=== PATIENT | female | born 1995 | race African-American/Black ===

== ENCOUNTER 2016-09-02 07:09 | Emergency (ER) | payer OTHER ==
[2016-09-02 07:13] VITALS: BP 121/73; BMI 43.5
--- NOTE | 2016-09-02 07:33 | DR.GENAD ---
HPI - PCP Primary Care Physician: Nanette Holt HPI Comment HPI Comment: WORSE TODAY. NO HISTORY TRAUMA. - Complaint/Symptoms Chief Complaint Doctors Comments: LEG CRAMPS TIMES ONE WEEK. . Chief Complaint:: pt is c/o leg cramps bilaterally in the back of her legs that started a week ago. Pt is - Nurses notes reviewed Nurses Notes Review: Yes - Source History Provided: Patient - Mode of Arrival Mode of Arrival: Ambulatory - Timing Onset of Chief Complaint: 08/26/16 Came on: Suddenly - Duration Duration: Constant Duration: Days - Severity Severity: Moderate <JULIUS AVENDAÑO - Last Filed: 09/04/16 15:05> PMH - PMH Past Medical History: Yes Past Medical History: Anxiety Past Surgical History: No - Family History History of Family Medical Conditions: Yes Family Medical History: Hypertension - Social History Does patient currently use any type of tobacco product: No Have you used tobacco products in the last 12 months: No Type of Tobacco Use: None Does any household member use tobacco: No Alcohol Use: None Do you use any recreational Drugs:: No Lives With: Alone Lives Where: Home - infectious screening In the last 2 months have you had wt loss of >10#?: NO Have you had fever, night sweats or hemotysis?: No Have you traveled outside the country in the last 6 months?: No Isolation: Standard <JULIUS AVENDAÑO - Last Filed: 09/04/16 15:05> ROS - Review of Systems Constitutional: No Symptoms Reported Eyes: No Symptoms Reported ENTM: No Symptoms Reported Respiratoy: No Symptoms Reported Cardiovascular: No Symptoms Reported Gastrointestinal/Abdominal: No Symptoms Reported Genitourinary: No Symptoms Reported Neurological: No Symptoms Reported Musculoskeletal: No Symptoms Reported, Muscle Pain (LEG CRAMPS) Integumentary: No Symptoms Reported Hematologic/Lymphatic: No Symptoms Reported Endocrine: No Symptoms Reported All Other Systems: Reviewed and Negative <JULIUS AVENDAÑO - Last Filed: 09/04/16 15:05> PE - General Limitations: No Limitations General Appearance: Alert - Head Head Exam: Normal Inspection - Eyes Eye exam: Normal Appearance - ENT ENT Exam: Normal External Ear Exam External Ear Exam: Normal External Inspection TM/Canal Exam: Bilateral Normal Nose Exam: Normal Nose Exam Mouth Exam: Normal Inspection Throat Exam: Normal Inspection - Neck Neck Exam: Normal Inspection - Chest Chest Inspection: Symmetric Chest Wall Rise - Respiratory Respiratory Exam: Normal Lung Sounds Bilat Respiratory Exam: Bilateral Clear to Auscultation - Cardiovascular Cardiovascular Exam: Regular Rate, Normal Rhythm, Normal Heart Sounds - Abdominal Exam Abdominal Exam: Normal Bowel Sounds, Distention. negative: Tenderness - Extremities Extremities Exam: Tenderness (LOWER LEGS) - Back Back Exam: Normal Inspection - Neurologic Neurological Exam: Alert, Oriented X3 - Psychiatric Psychiatric Exam: Anxious - Skin Skin Exam: Normal Color <JULIUS AVENDAÑO - Last Filed: 09/04/16 15:05> - Vital Signs Vitals: Temperature 97.9 F Pulse Rate 69 Respiratory Rate 18 Blood Pressure 121/73 O2 Sat by Pulse Oximetry 99 (JOSIE GUTIÉRREZ) (JULIUS AVENDAÑO) MDM - Differential Diagnosis Differential Diagnosis: LEG CRAMPS <JULIUS AVENDAÑO - Last Filed: 09/04/16 15:05> Course - Treatment Treatment: SEE ORDERS - Education/Counseling Education/Counseling: Patient, Education Educated On: Diagnosis <JULIUS AVENDAÑO - Last Filed: 09/04/16 15:05> ROR - Labs Reviewed Result Diagrams: 09/02/16 07:50 09/02/16 07:50 <JOSIE GUTIÉRREZ - Last Filed: 09/02/16 08:49> - Labs Reviewed Laboratory Results Reviewed?: Yes Result Diagrams: 09/02/16 07:50 09/02/16 07:50 - XRAY XRAY Interpreted by: Radiologist XRAY Findings: REPORT DISCUSS WITH PATIENT. <JULIUS AVENDAÑO - Last Filed: 09/04/16 15:05> - Labs Reviewed Laboratory: WBC 6.9 X10^3/uL (3.6-10.0) 09/02/16 07:50 RBC 4.35 X10^6/uL (3.5-5.4) 09/02/16 07:50 Hgb 11.8 g/dL (12.0-16.0) L 09/02/16 07:50 Hct 36.4 % (36.0-47.0) 09/02/16 07:50 MCV 83.7 fL (80.0-100.0) 09/02/16 07:50 MCH 27.0 pg (27.0-34.0) 09/02/16 07:50 MCHC 32.3 g/dL (33.0-35.0) L 09/02/16 07:50 RDW 14.6 % (11.6-16.5) 09/02/16 07:50 Plt Count 280 X10^3/uL (150.0-450.0) 09/02/16 07:50 MPV 7.9 fL (7.4-11.0) 09/02/16 07:50 Neut % 67.4 % (42.0-75.0) 09/02/16 07:50 Lymph % 22.4 % (21.0-51.0) 09/02/16 07:50 Hardeman % 7.8 % (0.0-13.0) 09/02/16 07:50 Eos % 1.8 % (0.9-2.9) 09/02/16 07:50 Baso % 0.6 % (0.2-1.0) 09/02/16 07:50 Neut # 4.7 x10^3/uL (2.2-4.8) 09/02/16 07:50 Lymph # 1.5 X10^3/uL (1.3-2.9) 09/02/16 07:50 Hardeman # 0.5 x10^3/uL (0.3-0.8) 09/02/16 07:50 Eos # 0.1 x10^3/uL (0.0-0.2) 09/02/16 07:50 Baso # 0.0 X10^3/uL (0.0-0.1) 09/02/16 07:50 Absolute Nucleated RBC 0.0 /100WBC 09/02/16 07:50 D-Dimer 698 ng/mL (0-400) H* 09/02/16 07:50 Sodium 141 mmol/L (136-145) 09/02/16 07:50 Corrected Sodium TNP 09/02/16 07:50 Potassium 3.7 mmol/L (3.5-5.1) 09/02/16 07:50 Chloride 108 mmol/L (98-107) H 09/02/16 07:50 Carbon Dioxide 22.5 mmol/L (21-32) 09/02/16 07:50 BUN 9 mg/dL (7-18) 09/02/16 07:50 Creatinine 0.65 mg/dL (0.55-1.02) 09/02/16 07:50 Est GFR (MDRD) Af Amer > 60 (>60) 09/02/16 07:50 Est GFR (MDRD) Non-Af > 60 (>60) 09/02/16 07:50 Glucose 85 mg/dL (65-99) 09/02/16 07:50 Calcium 8.3 mg/dL (8.5-10.1) L 09/02/16 07:50 Corrected Calcium 9.4 mg/dL (8.5-10.1) 09/02/16 07:50 Total Bilirubin 0.30 mg/dL (0.2-1.0) 09/02/16 07:50 AST 15 Units/L (15-37) 09/02/16 07:50 ALT 19 Units/L (12-78) 09/02/16 07:50 Alkaline Phosphatase 74 Units/L (46-116) 09/02/16 07:50 Total Protein 7.0 g/dL (6.4-8.2) 09/02/16 07:50 Albumin 2.6 g/dL (3.4-5.0) L 09/02/16 07:50 Globulin 4.4 g/dL (2.5-4.5) 09/02/16 07:50 Albumin/Globulin Ratio 0.6 Ratio (1.1-2.1) L 09/02/16 07:50 (JOSIE GUTIÉRREZ) <JOSIE GUTIÉRREZ - Last Filed: 09/02/16 08:49> <JULIUS AVENDAÑO - Last Filed: 09/04/16 15:05> - Diagnosis Discharge Problem: Leg cramps in - Discharge Plan Disposition: 01 HOME, SELF-CARE Condition: Stable - Follow ups/Referrals Follow ups/Referrals: Evi ORTEGA [Primary Care Provider] - 3 days - Instructions Instructions: Leg Cramps Additional Instructions: RETURN TO ED IF WORSE.
[2016-09-02 07:58] LABS: BASOPHILS % (AUTO) 0.6 % (0.2-1.0); EOSINOPHILS # (AUTO) 0.1 x10^3/uL (0.0-0.2); EOSINOPHILS % (AUTO) 1.8 % (0.9-2.9); HEMATOCRIT 36.4 % (36.0-47.0); HEMOGLOBIN 11.8 g/dL (12.0-16.0); LYMPHOCYTES # (AUTO) 1.5 X10^3/uL (1.3-2.9); LYMPHOCYTES % (AUTO) 22.4 % (21.0-51.0); MEAN CORPUSCULAR HGB CONC 32.3 g/dL (33.0-35.0); MEAN CORPUSCULAR VOLUME 83.7 fL (80.0-100.0); MEAN PLATELET VOLUME 7.9 fL (7.4-11.0); MONOCYTES # (AUTO) 0.5 x10^3/uL (0.3-0.8); MONOCYTES % (AUTO) 7.8 % (0.0-13.0); NEUTROPHILS # (AUTO) 4.7 x10^3/uL (2.2-4.8); NEUTROPHILS % (AUTO) 67.4 % (42.0-75.0); PLATELET COUNT 280 X10^3/uL (150.0-450.0); RED BLOOD COUNT 4.35 X10^6/uL (3.5-5.4); RED CELL DISTRIBUTION WIDTH 14.6 % (11.6-16.5); WHITE BLOOD COUNT 6.9 X10^3/uL (3.6-10.0)
[2016-09-02 08:11] LABS: ALANINE AMINOTRANSFERASE 19 Units/L (12-78); ALBUMIN 2.6 g/dL (3.4-5.0); ALKALINE PHOSPHATASE 74 Units/L (46-116); ASPARTATE AMINO TRANSFERASE 15 Units/L (15-37); BLOOD UREA NITROGEN 9 mg/dL (7-18); CALCIUM 8.3 mg/dL (8.5-10.1); CARBON DIOXIDE 22.5 mmol/L (21-32); CHLORIDE 108 mmol/L (98-107); COR CA(FOR HYPOALB) 9.4 mg/dL (8.5-10.1); CREATININE 0.65 mg/dL (0.55-1.02); GLUCOSE 85 mg/dL (65-99); SODIUM 141 mmol/L (136-145); eGFR BLACK RACES > 60 (>60); eGFR NON BLACK RACES > 60 (>60)
[2016-09-02 08:34] LABS: D DIMER 698 ng/mL (0-400)
--- NOTE | 2016-09-02 09:35 | VAS ---
HISTORY: Bilateral lower extremity pain with Study: Bilateral lower extremity venous Doppler Comparison: None available TECHNIQUE: Multiple valladares scale and color flow Doppler images of the deep venous system were obtaine d of the right and left lower extremity. FINDINGS: The deep venous system of the right and left lower extremities were evaluated from the level of the common femoral vein through the popliteal vein. Normal color flow and augmentation can be observed. In addition, normal compression is seen throughout the deep venous system. IMPRESSION: 1. Negative for DVT. Reported By:
== END 2016-09-02 09:58 | disposition home or self-care (01) ==
LOC: ER 07:20
DX: R25.2 Cramp and spasm (principal); Z3A.00 Weeks of gestation of pregnancy not specified
CPT/HCPCS: 36415; 80053; 85025; 85378; 93970; 99283

== ENCOUNTER → 2016-12-17 | Outpatient (CLI) | payer OTHER ==
[2016-12-17 10:38] LABS: BASOPHILS % (AUTO) 0.1 % (0.2-1.0); EOSINOPHILS # (AUTO) 0.1 x10^3/uL (0.0-0.2); EOSINOPHILS % (AUTO) 1.2 % (0.9-2.9); HEMOGLOBIN 12.1 g/dL (12.0-16.0); LYMPHOCYTES # (AUTO) 1.7 X10^3/uL (1.3-2.9); LYMPHOCYTES % (AUTO) 25.2 % (21.0-51.0); MEAN CORPUSCULAR HEMOGLOBIN 27.7 pg (27.0-34.0); MEAN CORPUSCULAR HGB CONC 33.5 g/dL (33.0-35.0); MEAN CORPUSCULAR VOLUME 82.7 fL (80.0-100.0); MEAN PLATELET VOLUME 8.4 fL (7.4-11.0); MONOCYTES # (AUTO) 0.6 x10^3/uL (0.3-0.8); MONOCYTES % (AUTO) 9.3 % (0.0-13.0); NEUTROPHILS # (AUTO) 4.4 x10^3/uL (2.2-4.8); NEUTROPHILS % (AUTO) 64.2 % (42.0-75.0); PLATELET COUNT 272 X10^3/uL (150.0-450.0); RED BLOOD COUNT 4.35 X10^6/uL (3.5-5.4); RED CELL DISTRIBUTION WIDTH 14.8 % (11.6-16.5); WHITE BLOOD COUNT 6.9 X10^3/uL (3.6-10.0)
[2016-12-17 10:38] LABS: BILIRUBIN,URINE NEGATIVE (NEGATIVE); BLOOD/HEMOGLOBIN,URINE NEGATIVE (NEGATIVE); GLUCOSE, URINE NEGATIVE (NEGATIVE); KETONES,URINE NEGATIVE (NEGATIVE); LEUKOCYTE ESTERASE ,URINE 1+ (NEGATIVE); NITRITES,URINE NEGATIVE (NEGATIVE); PROTEIN,URINE NEGATIVE (NEGATIVE); UROBILINOGEN,URINE NORMAL (NORMAL)
[2016-12-17 10:52] LABS: BLOOD UREA NITROGEN 6 mg/dL (7-18); CALCIUM 8.6 mg/dL (8.5-10.1); CARBON DIOXIDE 25.9 mmol/L (21-32); CHLORIDE 105 mmol/L (98-107); CREATININE 0.71 mg/dL (0.55-1.02); GLUCOSE 75 mg/dL (65-99); SODIUM 138 mmol/L (136-145); eGFR BLACK RACES > 60 (>60); eGFR NON BLACK RACES > 60 (>60)
[2016-12-17 11:08] LABS: AMORPHOUS SEDIMENT,UR TRACE /HPF (NEGATIVE); APPEARANCE,URINE CLEAR (CLEAR); BACTERIA,URINE NEGATIVE /HPF (NEGATIVE); COLOR,URINE YELLOW (YELLOW); RBC,URINE NONE SEEN /HPF (NEGATIVE); SQUAMOUS EPITHELIAL CELL,UR FEW /HPF (NEGATIVE)
== END ==
LOC: LAB 09:49
PROVIDERS: ATTEND Specialist
DX: Z01.818 Encounter for other preprocedural examination (principal); Z34.83 Encounter for supervision of other normal pregnancy, third trimester
CPT/HCPCS: 36415; 80048; 81001; 85025; 86592; 86850; 86900; 86901

== ENCOUNTER 2016-12-19 06:37 | Inpatient (IN) | payer OTHER ==
[~2016-12-19 06:37] MED LIST: D5 1/2 NS 1000 ML 1,000 ML IV ONE; D5LR 1L W PITOCIN 10 UNITS/L 1,000 ML IV ONE
[2016-12-19] MEDS ORDERED: D5 1/2 NS 1000 ML 1,000 ML IV SCH (06:42)
[2016-12-19] MEDS ORDERED: PHENERGAN INJ 25 MG IV PRN ×3 (06:42→12:50)
[2016-12-19] MEDS ORDERED: PITOCIN 10 UNITS in D5 LR 1000 ML 1,000 ML IV PRN (06:42)
[2016-12-19] MEDS ORDERED: REGLAN INJ 10 MG VIAL IVP PRN ×2 (06:42→12:50)
[2016-12-19] MEDS ORDERED: PITOCIN IVP ONE (06:42)
--- NOTE | 2016-12-19 07:11 | DR.OB ---
OB Quick Note - Assessment/Plan Assessment/Plan: L&D 12/19/16 at 7:00am S-No complaint. O-Afebrile,VSS EQO=230 with good LTV, +accel, no decel. CTX=occ., mild CVX=3cm/50%/-1/VTX AROM with clear fluid. IUPC and FSE placed. A-IUP at 39 1/7 weeks for induction P-Begin pitocin induction Anticipate
[2016-12-19] MEDS ORDERED: LR 1000 ML IV 1,000 ML IV ONE ×2 (07:51→08:40)
[2016-12-19] MEDS ORDERED: FENTANYL INJ 100 mcg ONE ×2 (07:51→08:03)
[2016-12-19] MEDS ORDERED: PITOCIN ONE (07:51)
[2016-12-19] MEDS ORDERED: NAROPIN EPIDURAL 0.2% + FENTANYL 90MCG 60 ML EPI ONE (07:51)
[2016-12-19] MEDS ORDERED: D5 1/2 NS 1000ML W PITOCIN 20 U/L 1,000 ML IV ONE (07:52)
[2016-12-19] MEDS ORDERED: XYLOCAINE-MPF 1% ONE (08:03)
[2016-12-19] MEDS: NUBAIN INJ 200 MG VIAL MULTIDOSE IVP PRN ×2 (08:11→10:41)
[2016-12-19] MEDS ORDERED: NUBAIN INJ 10 ONE ×2 (08:12→10:42)
[2016-12-19] MEDS ORDERED: FENTANYL INJ 100 mcg EPI ONE (10:59)
[2016-12-19] MEDS ORDERED: MOTRIN TAB 800 MG PO PRN (11:55)
[2016-12-19] MEDS ORDERED: D5 1/2 NS 1000 ML 1,000 ML with PITOCIN 20 UNITS IV SCH ×4 (12:00→20:00)
[2016-12-19] MEDS ORDERED: ADACEL TDaP IM ONE (12:50)
[2016-12-19] MEDS ORDERED: DERMOPLAST SPRAY TOP PRN (12:50)
[2016-12-19] MEDS ORDERED: MILK OF MAGNESIA PO PRN (12:50)
[2016-12-19] MEDS ORDERED: AMBIEN PO PRN (12:50)
--- NOTE | 2016-12-19 13:33 | DR.OB ---
OB Quick Note - Assessment/Plan Assessment/Plan: Delivery Note MOULDER OPERATOR 12/19/16 at 11:44am Patient complete and pushing. Head delivered over intact perineum. No nuchal cord. Nose and mouth bulb suctioned. Body delivered over intact perineum. Cord clamped x 2 and cut. Infant handed to attendant. Cord sent for gases. Placenta delivered spontaneously / intact / 3 vessel cord. No CVX / vaginal / perineal tears. Viable male infant, wt=7'7" and 9/9, stable to NBN. Mother stable to RR. [id number].
[2016-12-19] MEDS ORDERED: ZANTAC PO ONE (16:00)
[2016-12-19] MEDS: MOTRIN TAB 800 MG PO PRN (22:17)
[2016-12-19] MEDS: ZANTAC PO SCH (22:17)
[2016-12-20 05:26] LABS: HEMATOCRIT 35.1 % (36.0-47.0); HEMOGLOBIN 11.5 g/dL (12.0-16.0)
[2016-12-20] MEDS: PRENATAL PLUS PO SCH (08:40)
[2016-12-20] MEDS: ZANTAC PO SCH ×2 (10:06→21:45)
[2016-12-20] MEDS ORDERED: ZANTAC PO ONE (15:30)
[2016-12-20] MEDS: MOTRIN TAB 800 MG PO PRN (15:49)
[2016-12-21] MEDS: MOTRIN TAB 800 MG PO PRN (09:30)
[2016-12-21] MEDS: ZANTAC PO SCH (09:30)
[2016-12-21] MEDS: PRENATAL PLUS PO SCH (09:30)
[2016-12-21 11:16] VITALS: BP 125/76
== END 2016-12-21 10:00 | disposition home or self-care (01) | DRG 775 ==
LOC: LD 06:37 → MED/SURG 13:03
PROVIDERS: ADMIT Specialist; ATTEND Specialist
PROC: 10E0XZZ Delivery of Products of Conception, External Approach (ICD-10-PCS; principal; 2016-12-19)
PROC: 10907ZC Drainage of Amniotic Fluid, Therapeutic from Products of Conception, Via Natural or Artificial Opening (ICD-10-PCS; 2016-12-19)
PROC: 3E033VJ Introduction of Other Hormone into Peripheral Vein, Percutaneous Approach (ICD-10-PCS; 2016-12-19)
PROC: 00HU33Z Insertion of Infusion Device into Spinal Canal, Percutaneous Approach (ICD-10-PCS; 2016-12-19)
PROC: 3E0234Z Introduction of Serum, Toxoid and Vaccine into Muscle, Percutaneous Approach (ICD-10-PCS; 2016-12-19)
DX: O9A.113 Malignant neoplasm complicating pregnancy, third trimester (principal); Z37.0 Single live birth; O99.613 Diseases of the digestive system complicating pregnancy, third trimester; O26.893 Other specified pregnancy related conditions, third trimester; Z3A.39 39 weeks gestation of pregnancy; Z23 Encounter for immunization
CPT/HCPCS: 36415; 59409; 85014; 85018; A4222; S0197; J2300; J2590; J3010; J7042; J7120

== ENCOUNTER 2024-12-28 06:30 | Inpatient (IN) ==
[2024-12-28] MEDS ORDERED: REGLAN INJ 10 MG VIAL IVP PRN (06:35)
[2024-12-28] MEDS ORDERED: NUBAIN INJ 20 MG AMP IVP PRN (06:35)
[2024-12-28] MEDS ORDERED: PITOCIN ONE (06:41)
[2024-12-28] MEDS ORDERED: D5 1/2 NS 1,000 ML 1,000 ML IV ONE (06:42)
[2024-12-28] MEDS ORDERED: PROTONIX INJ 40 MG VIAL ONE (07:21)
[2024-12-28 07:23] LABS: BLOOD/HEMOGLOBIN,URINE NEGATIVE (NEGATIVE); LEUKOCYTE ESTERASE ,URINE 1+ (NEGATIVE); NITRITES,URINE NEGATIVE (NEGATIVE)
--- NOTE | 2024-12-28 07:23 | DR.OB ---
OB QUICK NOTE Assessment/Plan (1) Encounter for planned induction of labor: Assessment/Plan: L&D 12/28/24 at 7:15am S-No complaint. O-Afebrile,VSS JFL=611 with good LTV, +accel, no decel. CTX=none CVX=3cm/50%/-1/VTX AROM with clear fluid. IUPC and FSE placed. A-IUP at 38 6/7 weeks for induction P-Begin pitocin induction F/U labs Anticipate
[2024-12-28] MEDS: PROTONIX INJ 40 MG VIAL IVP ONE (07:32)
[2024-12-28] MEDS: D5 1/2 NS 1,000 ML 1,000 ML IV SCH (07:33)
[2024-12-28 07:39] LABS: APPEARANCE,URINE HAZY (CLEAR)
[2024-12-28 07:40] LABS: SQUAMOUS EPITHELIAL CELL,UR MANY /HPF (NEGATIVE)
[2024-12-28] MEDS: OXYTOCIN 20 UNIT/1,000 ML-NS 20 UNIT/1,000 ML PLAST..BAG IV PRN (07:45)
[2024-12-28] MEDS: NAROPIN EPIDURAL 0.2% 100 ML ONE (09:24)
[2024-12-28] MEDS: FENTANYL VIAL INJ 100 mcg ONE (09:25)
[2024-12-28] MEDS: BETADINE SOLN ONE (09:26)
[2024-12-28] MEDS: LR 1,000 ML IV 1,000 ML IV ONE (09:26)
[2024-12-28] MEDS: NUBAIN INJ 10 MG AMP ONE (09:26)
[2024-12-28] MEDS ORDERED: NAROPIN EPIDURAL 0.2% PRN (09:45)
[2024-12-28] MEDS: ZOFRAN INJ 4 MG VIAL IVP PRN (11:49)
[2024-12-28] MEDS: PITOCIN IVP ONE (12:15)
--- NOTE | 2024-12-28 12:31 | DR.OB ---
OB QUICK NOTE Assessment/Plan (1) Encounter for planned induction of labor: Assessment/Plan: Delivery Note TOPOLOGY TEACHER 12/28/24 at 12:10pm Patient complete and pushing. Mother and infant stable. Head delivered over intact perineum. No nuchal cord. Nose and mouth bulb suctioned. Body delive red over intact perineum. Cord clamped x 2 and cut. handed to attendant. Cord sent for gases. Placenta delivered spontaneously / intact / 3 vessel cord. No CVX / vaginal / perineal tears noted. Viable female delivered by , VTX/OA, wt=6'7" and 8/9, stable to NBN. Mother stable to RR. BXE=[id number].
[2024-12-28] MEDS ORDERED: MILK OF MAGNESIA PO PRN (12:38)
[2024-12-28] MEDS ORDERED: AMBIEN PO PRN (12:38)
[2024-12-28] MEDS: OXYTOCIN 20 UNIT/1,000 ML-NS 20 UNIT/1,000 ML PLAST..BAG IV SCH (13:20)
[2024-12-28 21:16] VITALS: RESP 18
[2024-12-29] MEDS: DERMOPLAST PAIN RELIEF SPRAY TOP PRN (00:22)
[2024-12-29] MEDS: MOTRIN TAB 800 MG PO PRN ×2 (00:27→09:18)
[2024-12-29] MEDS: XYLOCAINE 1 % (PLAIN) ONE (07:00)
[2024-12-29] MEDS: ZOFRAN INJ 4 MG VIAL ONE (07:00)
[2024-12-29] MEDS: ADACEL or BOOSTRIX TDaP VACCINE IM ONE (08:18)
[2024-12-29] MEDS: PRENATAL PLUS PO SCH (09:22)
[2024-12-29 12:58] VITALS: BP 118/67; PULSE 59; TEMP 98.5; O2SAT 99
== END 2024-12-29 14:37 | disposition home or self-care (01) | DRG 807 ==
LOC: LD 06:37 → MED/SURG 14:07
PROVIDERS: ADMIT Specialist; ATTEND Specialist